=== PATIENT | female | born 1960 | race African-American/Black ===

== ENCOUNTER 2018-08-18 11:15 | Emergency (ER) | payer OTHER ==
[~2018-08-18] VITALS: Ht 157.5 cm; Wt 65.0 kg
[2018-08-18 11:19] VITALS: BP 127/54
[2018-08-18] MEDS ORDERED: IBUPROFEN 800MG TABLET PO ONE (12:45)
== END 2018-08-18 14:20 | disposition left against medical advice (07) ==
LOC: ER 11:15
DX: M79.604 Pain in right leg (principal); W01.0XXA Fall on same level from slipping, tripping and stumbling without subsequent striking against object, initial encounter; Y93.51 Activity, roller skating (inline) and skateboarding; Y92.89 Other specified places as the place of occurrence of the external cause; Y99.8 Other external cause status
CPT/HCPCS: 99283; Z7610